=== PATIENT | female | born 1970 | race Caucasian/White ===

== ENCOUNTER → 2019-04-04 | Outpatient (CLI) | payer BC, OTHER | LOC: LAB SHORT 18:48 → LAB 18:48 | PROVIDERS: Nurse Practitioner Family | DX: Z01.411 Encounter for gynecological examination (general) (routine) with abnormal findings (principal) | CPT/HCPCS: G0145 ==

== ENCOUNTER → 2020-06-24 | Outpatient (CLI) | payer BC, OTHER ==
[2020-06-26 16:10] LABS: HPV 16 Negative (Negative); HPV 18 Negative (Negative); HPV OTHER HR TYPES Negative (Negative)
== END | disposition home or self-care (01) ==
LOC: LAB SHORT 18:52 → LAB 18:52
PROVIDERS: Physician Assistant
DX: Z01.411 Encounter for gynecological examination (general) (routine) with abnormal findings (principal)
CPT/HCPCS: 87624; G0145